=== PATIENT | female | born 1975 | race African-American/Black ===

== ENCOUNTER 2021-12-15 14:05 | Outpatient (CLI) | payer BC | END 2021-12-15 14:06 | disposition home or self-care (01) | LOC: CSHRAD 14:05 | PROVIDERS: ATTEND Nurse Practitioner Family | DX: F17.200 Nicotine dependence, unspecified, uncomplicated (principal) | CPT/HCPCS: 71046 ==

== ENCOUNTER 2022-05-15 10:53 | Outpatient (CLI) | payer BC ==
[~2022-05-15 10:53] MED LIST: Iopamidol 300 61% 100 ML VIAL FS ONE
== END 2022-05-15 10:54 | disposition home or self-care (01) ==
LOC: CSHCT 10:53
PROVIDERS: ATTEND Student in an Organized Health Care Education/Training Program
DX: R22.1 Localized swelling, mass and lump, neck (principal); K11.8 Other diseases of salivary glands
CPT/HCPCS: 70491; Q9967

== ENCOUNTER 2022-06-03 14:38 | Outpatient (CLI) | payer BC, OTHER | END 2022-06-03 14:39 | disposition home or self-care (01) | LOC: CSHRAD 14:38 | PROVIDERS: ATTEND Physician Assistant | DX: J18.9 Pneumonia, unspecified organism (principal); J90 Pleural effusion, not elsewhere classified | CPT/HCPCS: 71046 ==

== ENCOUNTER 2022-09-27 23:15 | Emergency (ER) | payer BC ==
[2022-09-28 01:58] LABS: #Basophils 0.1 10x3/uL (0.0-0.2); #Eosinphils 0.4 10x3/uL (0.0-0.5); #Monocytes 0.5 10x3/uL (0.0-1.1); #Neutrophils 1.9 10x3/uL (1.5-8.4); %Eosinophils 6.3 % (0.0-6.0); %Lymphocytes 51.5 % (18.0-47.0); %Monocytes 8.2 % (0.0-10.0); %Neutrophils 32.8 % (40.0-75.0); Hemoglobin 12.5 g/dL (12.0-15.5); Mean Corpuscular HGB CONC 32.9 g/dL (32.0-36.0); Mean Corpuscular Hemoglobin 26.7 pg (27.0-33.0); Mean Platelet Volume 10.4 fl (7.4-10.4); Platelet Count 274 10x3/uL (150-450); RBC Distribution Width 13.5 % (11.5-14.5); Red Blood Cell (RBC) Count 4.69 10x6/uL (3.90-5.03); White Blood Cell (WBC) Count 5.9 10x3/uL (3.5-10.5)
[2022-09-28 01:59] LABS: Anion Gap 10 mmol/L (10-20); BUN (Urea Nitrogen) 23 mg/dL (7.0-18.7); Calc. Creatinine Clearance 0 mL/min (70-130); Calcium 9.1 mg/dL (7.8-10.44); Carbon Dioxide 27 mmol/L (22-29); Chloride 110 mmol/L (98-107); Estimated GFR 81; Glucose 90 mg/dL (70-105); Magnesium 2.1 mg/dL (1.6-2.6); Sodium 143 mmol/L (136-145)
[2022-09-28 03:49] LABS: Eosinophils 4 % (0-10); Lymphocytes 48 % (21-51); Monocytes 10 % (0-10); Reactive Lymphocytes 5 % (0-10)
[2022-09-28 03:51] LABS: Diff Comment (RBC Morph SCRN) NORMAL; Neutrophil 33 % (42-75); Platelet Morphology Comment Appears Adequate
[2022-09-28] MEDS ORDERED: Doxycycline 100 MG CAP PO SCH (04:00)
== END 2022-09-28 04:06 | disposition home or self-care (01) ==
LOC: CSHERS 23:15
DX: R07.9 Chest pain, unspecified (principal); F17.210 Nicotine dependence, cigarettes, uncomplicated
CPT/HCPCS: 71270; 80048; 83735; 84484; 85025; 93005

== ENCOUNTER 2024-02-09 09:33 | Emergency (ER) | payer SELFPAY | END 2024-02-09 10:04 | disposition home or self-care (01) | LOC: CSHERS 09:33 | DX: R07.89 Other chest pain (principal); R00.2 Palpitations; F17.210 Nicotine dependence, cigarettes, uncomplicated | CPT/HCPCS: 93005 ==